=== PATIENT | female | born 1990 | race Caucasian/White ===

== ENCOUNTER 2021-09-15 00:25 | Inpatient (IN) ==
[~2021-09-15 00:25] MED LIST: *HR* FentaNYL (PF) 100 MCG/2 ML VIAL IVP PRN; *HR* Nalbuphine 10 MG/ML AMPUL IV PRN; Azithromycin 500 MG in 0.9 % Sodium Chloride 250 ML IVPB PRN; Famotidine 20 MG/2 ML VIAL IVP PRN; Metoclopramide 10 MG/2 ML VIAL IVP PRN; Naloxone 0.4 MG/ML INJ IVP PRN; Ondansetron 4 MG/2 ML VIAL IVP PRN; miSOPROStoL 25 MCG TABLET PO PRN
[2021-09-15 00:57] LABS: Basophils % 0.2 %; Eosinophils % 0.4 %; Hematocrit 36.9 % (35.3-44.9); Hemoglobin 12.8 g/dL (11.5-15.4); Immature Granulocytes % 1.5 % (0-4); Lymphocytes # 2.3 K/mcL (0.6-4.6); Lymphocytes % 23.6 %; Mean Corpuscular HGB Conc 34.7 g/dL (31.6-35.5); Mean Corpuscular Hemoglobin 29.1 pg (28.0-33.3); Mean Corpuscular Volume 83.9 fL (83.0-100.0); Mean Platelet Volume 9.6 fL (9.4-12.4); Monocytes # 0.8 K/mcL (0.0-1.3); Monocytes % 7.8 %; Neutrophils # 6.4 K/mcL (1.6-8.9); Platelet Count 148 K/mcL (140-400); Segmented Neutrophils % 66.5 %; White Blood Count 9.7 K/mcL (4.3-11.1)
[2021-09-15 01:03] LABS: Amphetamine Screen,Urine Negative ng/mL (Cutoff=1000); Barbiturate Screen,Urine Negative ng/mL (Cutoff=200); Benzodiazepines Screen,Urine Negative ng/mL (Cutoff=200); Cannabinoid Screen,Urine Negative ng/mL (Cutoff = 50); Cocaine Screen,Urine Negative ng/mL (Cutoff= 300); Opiate Screen,Urine Negative ng/mL (Cutoff=300); Phencyclidine Screen,Urine Negative ng/mL (Cutoff=25)
[2021-09-15] MEDS: Ringers Solution, Lactated 1,000 ML IVC SCH ×3 (01:09→17:16)
[2021-09-15 01:30] LABS: Influenza A PCR Negative (Negative); Influenza B PCR Negative (Negative); Resp. Syncytial Virus PCR Negative (Negative)
[2021-09-15 01:34] LABS: SARS-CoV-2 by PCR (In House) Negative (Negative)
[2021-09-15] MEDS ORDERED: EPHEDrine 50 MG/ML VIAL IVP PRN (03:30)
[2021-09-15] MEDS ORDERED: Oxytocin 30 UNIT/503 ML BAG IVC SCH ×2 (06:30→22:40)
[2021-09-15] MEDS: Epidural Premix (fent/bupiv) 110 ML EP SCH ×2 (09:09→15:32)
[2021-09-15] MEDS ORDERED: Lanolin 7 G OINT...G. TP PRN (22:40)
[2021-09-15] MEDS ORDERED: Benzocaine/Menthol 56 GM AEROSOL SPRAY TP PRN (22:40)
[2021-09-15] MEDS ORDERED: OXYTOCIN/RINGERS LACTATE 10 UNIT/166.6 ML BAG IVC ONE (22:40)
[2021-09-15] MEDS ORDERED: Rho Immune Globulin 1,500 UNIT SYRINGE IM PRN (22:40)
[2021-09-15] MEDS ORDERED: Ondansetron ODT 4 MG TAB.RAPDIS SL PRN (22:40)
[2021-09-15] MEDS ORDERED: Ondansetron 4 MG/2 ML VIAL IVP PRN (22:40)
[2021-09-15] MEDS ORDERED: Measles/Mumps/Rubella Vacc 0.5 ML VIAL SQ PRN (22:40)
[2021-09-16] MEDS: Ibuprofen 600 MG TABLET PO SCH ×4 (00:23→19:19)
[2021-09-16 03:51] LABS: Basophils % 0.1 %; Hematocrit 27.9 % (35.3-44.9); Immature Granulocytes % 0.7 % (0-4); Lymphocytes # 1.6 K/mcL (0.6-4.6); Lymphocytes % 7.3 %; Mean Corpuscular HGB Conc 34.1 g/dL (31.6-35.5); Mean Corpuscular Hemoglobin 28.8 pg (28.0-33.3); Mean Corpuscular Volume 84.5 fL (83.0-100.0); Mean Platelet Volume 9.9 fL (9.4-12.4); Monocytes # 1.3 K/mcL (0.0-1.3); Monocytes % 5.9 %; Neutrophils # 18.7 K/mcL (1.6-8.9); Platelet Count 133 K/mcL (140-400); Red Cell Distribution Width 18.7 % (11.5-14.5)
[2021-09-16 03:54] LABS: Hemoglobin 9.5 g/dL (11.5-15.4); White Blood Count 21.7 K/mcL (4.3-11.1)
[2021-09-16] MEDS: Acetaminophen 325 MG TABLET PO SCH ×3 (05:01→17:30)
[2021-09-16] MEDS: Prenatal Vit/FA 1 EACH TABLET PO SCH (09:38)
[2021-09-16] MEDS ORDERED: Simethicone 80 MG TAB.CHEW PO PRN (21:02)
[2021-09-17] MEDS: Ibuprofen 600 MG TABLET PO SCH (06:47)
[2021-09-17] MEDS: Acetaminophen 325 MG TABLET PO SCH (06:47)
[2021-09-17 07:43] VITALS: BP 105/69; PULSE 73; TEMP 98; O2SAT 97
[2021-09-17] MEDS: Prenatal Vit/FA 1 EACH TABLET PO SCH (08:14)
== END 2021-09-17 15:19 | disposition home or self-care (01) | DRG 806 ==
LOC: 1NENULAB → 1NENUOBS 22:29
PROVIDERS: ADMIT Registered Nurse; ATTEND Registered Nurse